=== PATIENT | male | born 1970 | race Two or more races ===

== ENCOUNTER 2018-02-07 16:08 | Inpatient (IN) | payer OTHER ==
[2018-02-07 16:54] VITALS: BMI 24.3
--- NOTE | 2018-02-07 20:14 | HP ---
CIWA Score - CIWA Score Nausea/Vomitin Muscle Tremors: 2 Anxiety: 3 Agitation: 1-Slight > Activity Paroxysmal Sweats: 2 Orientation: 1-Uncertain about Date Tacttile Disturbances: 0-None Auditory Disturbances: 0-None Visual Disturbances: 0-None Headache: 2-Mild CIWA-Ar Total Score: 13 Admission ROS S - HPI Chief Complaint: WITHDRAWAL SYMPTOMS Allergies/Adverse Reactions: Allergies Allergy/AdvReac Type Severity Reaction Status Date / Time No Known Allergies Allergy Verified 02/07/18 17:47 History of Present Illness: 47 Y.O. MAN WITH A HISTORY ALCOHOL DEPENDENCE IS HERE SEEKING DETOX. HE REPORTS HE LAST COMPLETED DETOX 1 YEAR AGO AT [facility]. HE IS HAS A HISTORY OF OPIOID DEPENDENCE IS CURRENTLY PRESCRIBED SUBOXONE (VERIFIED BY FACE BURLER AND 42 STRIPS OF 4/1MG WAS DISPENSED ON 01/29/18). LONGEST PERIOD SOBER HAS BEEN 8 MONTHS. Exam Limitations: No Limitations - Ebola screening Have you traveled outside of the country in the last 21 days: No (N) Have you had contact with anyone from an Ebola affected area: No Have you been sick,other than usual withdrawal symptoms: No Do you have a fever: No - Review of Systems Constitutional: Chills, Diaphoresis EENT: reports: Blurred Vision, Double Vision, Tearing Respiratory: reports: No Symptoms reported Cardiac: reports: No Symptoms Reported GI: reports: No Symptoms Reported : reports: No Symptoms Reported Musculoskeletal: reports: No Symptoms Reported Integumentary: reports: No Symptoms Reported Neuro: reports: Headache, Tremors Endocrine: reports: No Symptoms Reported Hematology: reports: No Symptoms Reported Psychiatric: reports: Anxious, other (BIPOLAR) Other Systems: Reviewed and Negative Patient History - Patient Medical History Hx Anemia: No Hx Asthma: No Hx Chronic Obstructive Pulmonary Disease (COPD): No Hx Cancer: No Hx Cardiac Disorders: No Hx Congestive Heart Failure: No Hx Hypertension: Yes (TAKES AMLODIPINE ) Hx Hypercholesterolemia: No Hx Pacemaker: No HX Cerebrovascular Accident: No Hx Seizures: No Hx Dementia: No Hx Diabetes: No Hx Gastrointestinal Disorders: No Hx Liver Disease: No Hx Genitourinary Disorders: No Hx Sexually Transmitted Disorders: No Hx Renal Disease (ESRD): No Hx Thyroid Disease: No Hx Human Immunodeficiency Virus (HIV): No Hx Hepatitis C: No Hx Depression: No Hx Suicide Attempt: No Hx Bipolar Disorder: Yes (ON SEROQUEL ) Hx Schizophrenia: No - Patient Surgical History Past Surgical History: Yes Hx Neurologic Surgery: No Hx Cataract Extraction: No Hx Cardiac Surgery: No Hx Lung Surgery: No Hx Breast Surgery: No Hx Breast Biopsy: No Hx Abdominal Surgery: No Hx Appendectomy: No Hx Cholecystectomy: No Hx Genitourinary Surgery: No Hx Orthopedic Surgery: Yes (rt. shoulder arthroscopy) Anesthesia Reaction: No - PPD History Previous Implant?: Yes Documented Results: Negative w/proof Date: 03/21/13 PPD to be Administered?: Yes - Reproductive History Patient is a Female of Child Bearing Age (11 -55 yrs old): No - Smoking Cessation Smoking history: Current every day smoker Have you smoked in the past 12 months: Yes Aproximately how many cigarettes per day: 20 Hx Chewing Tobacco Use: No Initiated information on smoking cessation: Yes 'Breaking Loose' booklet given: 02/07/18 - Substance & Tx. History Hx Alcohol Use: Yes Hx Substance Use: Yes Substance Use Type: Alcohol Hx Substance Use Treatment: Yes (DETOX: 1 YEAR AGO AT [facility] ) - Substances Abused Alcohol Route: Oral Frequency: Daily Amount used: LIQUOR- 2 PINTS Age of first use: 16 Date of Last Use: 02/07/18 Cocaine Route: Smoking Frequency: 1-2 times per week Amount used: 1 BAG Age of first use: 19 Date of Last Use: 02/05/18 Family Disease History - Family Disease History Family Disease History: Diabetes: Mother, Heart Disease: Mother, CA: Sister Admission Physical Exam [facility] - Vital Signs Vital Signs: Vital Signs - 24 hr 02/07/18 16:48 Temperature 98.8 F Pulse Rate 79 Respiratory 18 Rate Blood Pressure 133/90 - Physical General Appearance: Yes: Irritable, Anxious HEENTM: Yes: Hearing grossly Normal, Normal ENT Inspection, Normocephalic Respiratory: Yes: Chest Non-Tender, Lungs Clear, Normal Breath Sounds, No Respiratory Distress, No Accessory Muscle Use Neck: Yes: Within Normal Limits, No masses,lesions,Nodules Breast: Yes: Breast Exam Deferred Cardiology: Yes: Regular Rhythm Abdominal: Yes: Normal Bowel Sounds, Non Tender Genitourinary: Yes: Other (NO COMPLAINTS REPORTED) Back: Yes: Normal Inspection Musculoskeletal: Yes: full range of Motion, Gait Steady Extremities: Yes: Normal Capillary Refill, Normal Inspection, Normal Range of Motion, Non-Tender, Tremors Neurological: Yes: Alert, Normal Mood/Affect, Normal Response Integumentary: Yes: Normal Color, Dry, Warm Lymphatic: Yes: Within Normal Limits - Diagnostic (1) Uncomplicated alcohol dependence Current Visit: Yes Status: Chronic (2) Opioid dependence on agonist therapy Current Visit: Yes Status: Chronic Comment: PRESCRIBED SUBOXONE 4/1MG TID BUT REPORTS HE HAS BEEN TAKING IT BID WITH WITH WITHDRAWAL SYMPTOMS; WILL CONTINUE WITH BID (3) Nicotine dependence Current Visit: Yes Status: Chronic (4) Hypertension Current Visit: Yes Status: Chronic Cleared for Admission [facility] - Detox or Rehab [facility] Level of Care: Medically Managed Detox Regimen/Protocol: Librium [facility] Breath Alcohol Content Breath Alcohol Content: 0.195 Urine Drug Screen - Results Drug Screen Negative: No Urine Drug Screen Results: DESTINI-Cocaine
[2018-02-07] MEDS ORDERED: MENTHOL/PHENOL 1 EACH UD MM PRN (20:38)
[2018-02-07] MEDS ORDERED: chlordiazePOXIDE HCL 25 MG CAPSULE PO PRN (20:38)
[2018-02-07] MEDS ORDERED: MAGNESIUM CITRATE 300 ML BOTTLE PO PRN (20:38)
[2018-02-07] MEDS ORDERED: P-EPHED 60MG/TRIPROLIDI 2.5MG TABLET PO PRN (20:38)
[2018-02-07] MEDS ORDERED: IBUPROFEN 400 MG TABLET (FP) PO PRN (20:38)
[2018-02-07] MEDS ORDERED: LOPERAMIDE HCL 2 MG CAPSULE PO PRN (20:38)
[2018-02-07] MEDS ORDERED: chlordiazePOXIDE HCL 25 MG CAPSULE PO ONE (20:38)
[2018-02-07] MEDS ORDERED: MAG HYDROX/AL HYDROX/SIMETH 30 ML UNIT-DOSE CUP PO PRN (20:38)
[2018-02-07] MEDS ORDERED: hydrOXYzine PAMOATE 50 MG CAPSULE (FP) PO PRN (20:38)
[2018-02-07] MEDS ORDERED: ACETAMINOPHEN 325 MG TABLET (FP) PO PRN (20:38)
[2018-02-07] MEDS ORDERED: MAGNESIUM HYDROX 2400MG/30ML ORAL SUSPENSION 30 ML CUP PO PRN (20:38)
[2018-02-07] MEDS ORDERED: guaiFENesin/D-METHORPHAN HB 10 ML UNIT-DOSE CUPS PO PRN (20:38)
[2018-02-07] MEDS ORDERED: NICOTINE POLACRILEX 2 MG GUM BC PRN (20:38)
[2018-02-07] MEDS: THIAMINE HCL 100 MG TABLET (FP) PO SCH (21:53)
[2018-02-07] MEDS ORDERED: MELATONIN 5 MG TABLETS PO PRN (22:00)
[2018-02-07 23:20] LABS: URINE APPEARANCE CLEAR; URINE BILIRUBIN NEGATIVE (<2.0 mg/dL); URINE COLOR LTYELLOW; URINE GLUCOSE (UA) NEGATIVE (NEGATIVE); URINE KETONE TRACE (NEGATIVE); URINE LEUK ESTERASE NEGATIVE (NEGATIVE); URINE NITRITE NEGATIVE (NEGATIVE); URINE PROTEIN NEGATIVE (NEGATIVE); URINE UROBILINOGEN NEGATIVE mg/dL (0.2-1.0)
[2018-02-07] MEDS: chlordiazePOXIDE HCL 25 MG CAPSULE PO SCH (23:26)
[2018-02-08] MEDS: chlordiazePOXIDE HCL 25 MG CAPSULE PO SCH ×4 (05:17→22:26)
[2018-02-08 10:09] LABS: HEMATOCRIT 38.9 % (35.4-49); MEAN PLT VOLUME 8.4 fl (7.5-11.1); RBC 4.29 M/mm3 (4.00-5.60); RDW 13.4 % (11.9-15.9); WHITE BLOOD COUNT 5.1 K/mm3 (4.0-10.0)
[2018-02-08 10:12] LABS: HEMOGLOBIN 13.5 GM/dL (11.7-16.9); MCH 31.5 pg (25.7-33.7); MCHC 34.7 g/dl (32.0-35.9); MEAN CELL VOLUME 90.8 fl (80-96); PLATELET COUNT 217 K/MM3 (134-434)
[2018-02-08 10:24] LABS: ALBUMIN 3.8 g/dl (3.4-5.0); ANION GAP 11 (8-16); BLOOD UREA NITROGEN 7 mg/dL (7-18); CALCIUM 9.1 mg/dL (8.5-10.1); CHLORIDE 104 mmol/L (98-107); CO2 28 mmol/L (21-32); GLUCOSE,RANDOM 91 mg/dL (74-106); POTASSIUM 3.6 mmol/L (3.5-5.1); SODIUM 143 mmol/L (136-145)
[2018-02-08 10:28] LABS: ALK PHOS 90 U/L (45-117); BILIRUBIN,TOTAL 0.3 mg/dL (0.2-1.0); CREATININE 0.7 mg/dL (0.7-1.3); SGOT/AST 25 U/L (15-37); SGPT/ALT 41 U/L (12-78); TOT PROT 6.6 g/dl (6.4-8.2)
[2018-02-08] MEDS: amLODIPine BESYLATE 10 MG TABLET (FP) PO SCH (10:40)
[2018-02-08] MEDS: BUPRENORPHINE/NALOXONE 2 MG/0.5 MG FILM PACKET SL SCH ×2 (10:40→22:26)
[2018-02-08] MEDS: PRENATAL VITAMINS W/ FOLIC ACID TABLET (FP) PO SCH (10:40)
[2018-02-08] MEDS: NICOTINE 21 MG/24 HOURS TOPICAL PATCH TD SCH (10:41)
--- NOTE | 2018-02-08 12:32 | PN ---
S CIWA - CIWA Score Nausea/Vomitin Muscle Tremors: 3 Anxiety: 3 Agitation: 3 Paroxysmal Sweats: 1-Minimal Palms Moist Orientation: 0-Oriented Tacttile Disturbances: 1-Very Mild Itch/Numbness Auditory Disturbances: 1-Very Mild Visual Disturbances: 0-None Headache: 2-Mild CIWA-Ar Total Score: 17 [facility] Progress Note (SOAP) Subjective: ALERT,IRRITABLE,ANXIOUS,INTERRUPTED SLEEP,TREMOR Objective: 02/08/18 12:29 Vital Signs Temperature 98.1 F 02/08/18 09:38 Pulse Rate 82 02/08/18 12:00 Respiratory Rate 18 02/08/18 10:30 Blood Pressure 118/69 02/08/18 09:38 O2 Sat by Pulse Oximetry (%) EKG NSR QT 346/423 02/08/18 12:31 Laboratory Last Values WBC 5.1 K/mm3 (4.0-10.0) 02/08/18 07:00 RBC 4.29 M/mm3 (4.00-5.60) 02/08/18 07:00 Hgb 13.5 GM/dL (11.7-16.9) 02/08/18 07:00 Hct 38.9 % (35.4-49) 02/08/18 07:00 MCV 90.8 fl (80-96) 02/08/18 07:00 MCH 31.5 pg (25.7-33.7) 02/08/18 07:00 MCHC 34.7 g/dl (32.0-35.9) 02/08/18 07:00 RDW 13.4 % (11.9-15.9) 02/08/18 07:00 Plt Count 217 K/MM3 (134-434) 02/08/18 07:00 MPV 8.4 fl (7.5-11.1) 02/08/18 07:00 Sodium 143 mmol/L (136-145) 02/08/18 07:00 Potassium 3.6 mmol/L (3.5-5.1) D 02/08/18 07:00 Chloride 104 mmol/L (98-107) 02/08/18 07:00 Carbon Dioxide 28 mmol/L (21-32) 02/08/18 07:00 Anion Gap 11 (8-16) 02/08/18 07:00 BUN 7 mg/dL (7-18) D 02/08/18 07:00 Creatinine 0.7 mg/dL (0.7-1.3) 02/08/18 07:00 Creat Clearance w eGFR > 60 (>60) 02/08/18 07:00 Random Glucose 91 mg/dL (74-106) D 02/08/18 07:00 Calcium 9.1 mg/dL (8.5-10.1) 02/08/18 07:00 Total Bilirubin 0.3 mg/dL (0.2-1.0) D 02/08/18 07:00 AST 25 U/L (15-37) D 02/08/18 07:00 ALT 41 U/L (12-78) D 02/08/18 07:00 Alkaline Phosphatase 90 U/L (45-117) 02/08/18 07:00 Total Protein 6.6 g/dl (6.4-8.2) 02/08/18 07:00 Albumin 3.8 g/dl (3.4-5.0) 02/08/18 07:00 Urine Color Ltyellow 02/07/18 23:00 Urine Appearance Clear 02/07/18 23:00 Urine pH 6.0 (5.0-8.0) 02/07/18 23:00 Ur Specific [place] 1.015 (1.001-1.035) 02/07/18 23:00 Urine Protein Negative (NEGATIVE) 02/07/18 23:00 Urine Glucose (UA) Negative (NEGATIVE) 02/07/18 23:00 Urine Ketones Trace (NEGATIVE) H 02/07/18 23:00 Urine Blood Negative (NEGATIVE) 02/07/18 23:00 Urine Nitrite Negative (NEGATIVE) 02/07/18 23:00 Urine Bilirubin Negative (<2.0 mg/dL) 02/07/18 23:00 Urine Urobilinogen Negative mg/dL (0.2-1.0) 02/07/18 23:00 Ur Leukocyte Esterase Negative (NEGATIVE) 02/07/18 23:00 RPR Titer Nonreactive (NONREACTIVE) 02/08/18 07:00 HIV 1&2 Antibody Screen Negative 02/08/18 07:00 HIV P24 Antigen Negative 02/08/18 07:00 Assessment: 02/08/18 12:32 WITHDRAWAL SYMPTOM Plan: CONTINUE DETOX
--- NOTE | 2018-02-08 12:46 | CONSULT ---
[facility] Psychiatric Consult - Data Date of interview: 02/08/18 Admission source: [facility] Identifying data: Patient is a 47 year old single male, domiciled, father of one , unemployed, and receiving financial benefits. This is one of multiple admissions for patient. Pt. admitted to for alcohol and cocaine dependence. Substance Abuse History: Following information confirmed with Mr. Valencia: Smoking Cessation. Smoking history: Current every day smoker. Have you smoked in the past 12 months: Yes. Aproximately how many cigarettes per day: 20. Hx Chewing Tobacco Use: No. Initiated information on smoking cessation: Yes. ' Breaking Loose' booklet given: 02/07/18. - Substance & Tx. History. Hx Alcohol Use: Yes. Hx Substance Use: Yes. Substance Use Type: Alcohol. Hx Substance Use Treatment: Yes (DETOX: 1 YEAR AGO AT [facility] ). - Substances Abused. Alcohol. Route: Oral. Frequency: Daily. Amount used: LIQUOR- 2 PINTS. Age of first use: 16. Date of Last Use: 02/07/18. Cocaine. Route: Smoking. Frequency: 1-2 times per week. Amount used: 1 BAG. Age of first use : 19. Date of Last Use: 02/05/18 Medical History: rt. shoulder arthroscopy, hypertension Psychiatric History: Patient reports multiple psychiatric hospitalizations, most recently in October of 2017 at a "[facility]." Currently does not have an outpatient provider but was seeing a psychiatrist at the [facility] clinic (3 weeks ago). Pt. was prescribed latuda but d/c medication after becoming manic. Pt. states he is currently taking seroquel 50mg qhs. Patient denies h/o suicide attempt. Physical/Sexual Abuse/Trauma History: Denies. Mental Status Exam - Mental Status Exam Alert and Oriented to: Time, Place, Person Cognitive Function: Good Patient Appearance: Well Groomed Mood: Euthymic Affect: Mood Congruent Patient Behavior: Appropriate, Cooperative Speech Pattern: Appropriate Voice Loudness: Normal Thought Process: Intact, Goal Oriented Thought Disorder: Not Present Hallucinations: Denies Suicidal Ideation: Denies Homicidal Ideation: Denies Insight/Judgement: Poor Sleep: Poorly Appetite: Fair Muscle strength/Tone: Normal Gait/Station: Normal Psychiatric Findings - Problem List ([place] 1, 2,3) (1) Cocaine dependence Current Visit: Yes Status: Acute (2) Nicotine dependence Current Visit: Yes Status: Chronic (3) Uncomplicated alcohol dependence Current Visit: Yes Status: Acute (4) Substance induced mood disorder Current Visit: Yes Status: Acute (5) Opioid dependence on agonist therapy Current Visit: Yes Status: Chronic Comment: PRESCRIBED SUBOXONE 4/1MG TID BUT REPORTS HE HAS BEEN TAKING IT BID WITH WITH WITHDRAWAL SYMPTOMS; WILL CONTINUE WITH BID - Initial Treatment Plan Initial Treatment Plan: Psychoeducation provided. Detoxification in progress. Seroquel 50mg qhs ordered. Benefits and side effects discussed. Verbal consent given. Will continue to monitor.
[2018-02-08] MEDS ORDERED: QUEtiapine FUMARATE 50 MG TABLET PO SCH (22:00)
[2018-02-08] MEDS: THIAMINE HCL 100 MG TABLET (FP) PO SCH (22:26)
[2018-02-09] MEDS: chlordiazePOXIDE HCL 25 MG CAPSULE PO SCH ×2 (05:34→10:30)
--- NOTE | 2018-02-09 08:24 | EKG ---
Test Reason : Blood Pressure : / mmHG Vent. Rate : 090 BPM Atrial Rate : 090 BPM P-R Int : 156 ms QRS Dur : 082 ms QT Int : 346 ms P-R-T Axes : 071 086 057 degrees QTc Int : 423 ms NORMAL SINUS RHYTHM NORMAL ECG NO PREVIOUS ECGS AVAILABLE Confirmed by RICKY GREY, PARUL ([id number]) on 02/09/2018 8:23:18 AM Referred By: Confirmed By:PARUL GARCÍA MD
[2018-02-09 09:27] VITALS: BP 110/63; PULSE 64; TEMP 98.1
[2018-02-09] MEDS: PRENATAL VITAMINS W/ FOLIC ACID TABLET (FP) PO SCH (10:30)
[2018-02-09] MEDS: NICOTINE 21 MG/24 HOURS TOPICAL PATCH TD SCH (10:30)
[2018-02-09] MEDS: amLODIPine BESYLATE 10 MG TABLET (FP) PO SCH (10:30)
[2018-02-09] MEDS: BUPRENORPHINE/NALOXONE 2 MG/0.5 MG FILM PACKET SL SCH (10:30)
--- NOTE | 2018-02-09 12:28 | PN ---
S CIWA - CIWA Score Nausea/Vomitin Muscle Tremors: 3 Anxiety: 2 Agitation: 2 Paroxysmal Sweats: 1-Minimal Palms Moist Orientation: 0-Oriented Tacttile Disturbances: 1-Very Mild Itch/Numbness Auditory Disturbances: 1-Very Mild Visual Disturbances: 1-Very Mild Sensitivity Headache: 2-Mild CIWA-Ar Total Score: 16 S Progress Note (SOAP) Subjective: ALERT,IRRITABLE,ANXIOUS,INTERRUPTED SLEEP,TREMOR Objective: 02/09/18 12:26 Vital Signs Temperature 98.1 F 02/09/18 09:26 Pulse Rate 64 02/09/18 09:26 Respiratory Rate 16 02/09/18 09:26 Blood Pressure 110/63 02/09/18 09:26 O2 Sat by Pulse Oximetry (%) 02/09/18 12:27 Laboratory Last Values WBC 5.1 K/mm3 (4.0-10.0) 02/08/18 07:00 RBC 4.29 M/mm3 (4.00-5.60) 02/08/18 07:00 Hgb 13.5 GM/dL (11.7-16.9) 02/08/18 07:00 Hct 38.9 % (35.4-49) 02/08/18 07:00 MCV 90.8 fl (80-96) 02/08/18 07:00 MCH 31.5 pg (25.7-33.7) 02/08/18 07:00 MCHC 34.7 g/dl (32.0-35.9) 02/08/18 07:00 RDW 13.4 % (11.9-15.9) 02/08/18 07:00 Plt Count 217 K/MM3 (134-434) 02/08/18 07:00 MPV 8.4 fl (7.5-11.1) 02/08/18 07:00 Sodium 143 mmol/L (136-145) 02/08/18 07:00 Potassium 3.6 mmol/L (3.5-5.1) D 02/08/18 07:00 Chloride 104 mmol/L (98-107) 02/08/18 07:00 Carbon Dioxide 28 mmol/L (21-32) 02/08/18 07:00 Anion Gap 11 (8-16) 02/08/18 07:00 BUN 7 mg/dL (7-18) D 02/08/18 07:00 Creatinine 0.7 mg/dL (0.7-1.3) 02/08/18 07:00 Creat Clearance w eGFR > 60 (>60) 02/08/18 07:00 Random Glucose 91 mg/dL (74-106) D 02/08/18 07:00 Calcium 9.1 mg/dL (8.5-10.1) 02/08/18 07:00 Total Bilirubin 0.3 mg/dL (0.2-1.0) D 02/08/18 07:00 AST 25 U/L (15-37) D 02/08/18 07:00 ALT 41 U/L (12-78) D 02/08/18 07:00 Alkaline Phosphatase 90 U/L (45-117) 02/08/18 07:00 Total Protein 6.6 g/dl (6.4-8.2) 02/08/18 07:00 Albumin 3.8 g/dl (3.4-5.0) 02/08/18 07:00 Urine Color Ltyellow 02/07/18 23:00 Urine Appearance Clear 02/07/18 23:00 Urine pH 6.0 (5.0-8.0) 02/07/18 23:00 Ur Specific [place] 1.015 (1.001-1.035) 02/07/18 23:00 Urine Protein Negative (NEGATIVE) 02/07/18 23:00 Urine Glucose (UA) Negative (NEGATIVE) 02/07/18 23:00 Urine Ketones Trace (NEGATIVE) H 02/07/18 23:00 Urine Blood Negative (NEGATIVE) 02/07/18 23:00 Urine Nitrite Negative (NEGATIVE) 02/07/18 23:00 Urine Bilirubin Negative (<2.0 mg/dL) 02/07/18 23:00 Urine Urobilinogen Negative mg/dL (0.2-1.0) 02/07/18 23:00 Ur Leukocyte Esterase Negative (NEGATIVE) 02/07/18 23:00 RPR Titer Nonreactive (NONREACTIVE) 02/08/18 07:00 HIV 1&2 Antibody Screen Negative 02/08/18 07:00 HIV P24 Antigen Negative 02/08/18 07:00 Assessment: 02/09/18 12:27 WITHDRAWAL SYMPTOM Plan: CONTINUE DETOX
--- NOTE | 2018-02-09 12:31 | PN ---
[facility] Progress Note Note: PATIENT DID NOT WANT TO COMPLETE TREATMENT,SEEN BY COUNSELOR,SIGNED RELEASE AMA, ALL ATTEMPTS TO CONVINCE PATIENT TO STAY WITH NO AVAIL
--- NOTE | 2018-02-09 12:36 | DS ---
[facility] Detox Discharge Summary Admission Date: 02/07/18 Discharge Date: 02/09/18 - History Present History: Alcohol Dependence Additional Comments: PATIENT DID NOT WANT TO COMPLETE TREATMENT,ALL ATTEMPTS TO CONVINCE PATIENT TO STAY WITH NO AVAIL, SIGNED RELEASE AMA Pertinent Past History: NICOTINE DEPENDENCE SUBOXONE MAINTENANCE HYPERTENSION - Physical Exam Results Vital Signs: Vital Signs Temperature 98.1 F 02/09/18 09:26 Pulse Rate 64 02/09/18 09:26 Respiratory Rate 16 02/09/18 09:26 Blood Pressure 110/63 02/09/18 09:26 O2 Sat by Pulse Oximetry (%) Pertinent Admission Physical Exam Findings: WITHDRAWAL SIGNS AND SYMPTOM Vital Signs Temperature 98.1 F 02/09/18 09:26 Pulse Rate 64 02/09/18 09:26 Respiratory Rate 16 02/09/18 09:26 Blood Pressure 110/63 02/09/18 09:26 O2 Sat by Pulse Oximetry (%) Laboratory Last Values WBC 5.1 K/mm3 (4.0-10.0) 02/08/18 07:00 RBC 4.29 M/mm3 (4.00-5.60) 02/08/18 07:00 Hgb 13.5 GM/dL (11.7-16.9) 02/08/18 07:00 Hct 38.9 % (35.4-49) 02/08/18 07:00 MCV 90.8 fl (80-96) 02/08/18 07:00 MCH 31.5 pg (25.7-33.7) 02/08/18 07:00 MCHC 34.7 g/dl (32.0-35.9) 02/08/18 07:00 RDW 13.4 % (11.9-15.9) 02/08/18 07:00 Plt Count 217 K/MM3 (134-434) 02/08/18 07:00 MPV 8.4 fl (7.5-11.1) 02/08/18 07:00 Sodium 143 mmol/L (136-145) 02/08/18 07:00 Potassium 3.6 mmol/L (3.5-5.1) D 02/08/18 07:00 Chloride 104 mmol/L (98-107) 02/08/18 07:00 Carbon Dioxide 28 mmol/L (21-32) 02/08/18 07:00 Anion Gap 11 (8-16) 02/08/18 07:00 BUN 7 mg/dL (7-18) D 02/08/18 07:00 Creatinine 0.7 mg/dL (0.7-1.3) 02/08/18 07:00 Creat Clearance w eGFR > 60 (>60) 02/08/18 07:00 Random Glucose 91 mg/dL (74-106) D 02/08/18 07:00 Calcium 9.1 mg/dL (8.5-10.1) 02/08/18 07:00 Total Bilirubin 0.3 mg/dL (0.2-1.0) D 02/08/18 07:00 AST 25 U/L (15-37) D 02/08/18 07:00 ALT 41 U/L (12-78) D 02/08/18 07:00 Alkaline Phosphatase 90 U/L (45-117) 02/08/18 07:00 Total Protein 6.6 g/dl (6.4-8.2) 02/08/18 07:00 Albumin 3.8 g/dl (3.4-5.0) 02/08/18 07:00 Urine Color Ltyellow 02/07/18 23:00 Urine Appearance Clear 02/07/18 23:00 Urine pH 6.0 (5.0-8.0) 02/07/18 23:00 Ur Specific [place] 1.015 (1.001-1.035) 02/07/18 23:00 Urine Protein Negative (NEGATIVE) 02/07/18 23:00 Urine Glucose (UA) Negative (NEGATIVE) 02/07/18 23:00 Urine Ketones Trace (NEGATIVE) H 02/07/18 23:00 Urine Blood Negative (NEGATIVE) 02/07/18 23:00 Urine Nitrite Negative (NEGATIVE) 02/07/18 23:00 Urine Bilirubin Negative (<2.0 mg/dL) 02/07/18 23:00 Urine Urobilinogen Negative mg/dL (0.2-1.0) 02/07/18 23:00 Ur Leukocyte Esterase Negative (NEGATIVE) 02/07/18 23:00 RPR Titer Nonreactive (NONREACTIVE) 02/08/18 07:00 HIV 1&2 Antibody Screen Negative 02/08/18 07:00 HIV P24 Antigen Negative 02/08/18 07:00 - Medication Discharge Medications: Ambulatory Orders Quetiapine Fumarate [Seroquel -] 200 mg PO HS 03/19/13 Amlodipine Besylate [Norvasc -] 10 mg PO DAILY 02/07/18 Buprenorphine HCl/Naloxone HCl [Suboxone 4 mg-1 mg Sl Film] 1 each SL TID - Diagnosis (1) Alcohol dependence with uncomplicated withdrawal Current Visit: Yes Status: Acute (2) Uncomplicated alcohol dependence Current Visit: Yes Status: Acute (3) Hypertension Current Visit: Yes Status: Chronic (4) Nicotine dependence Current Visit: Yes Status: Chronic (5) Encounter for monitoring Suboxone maintenance therapy Current Visit: Yes Status: Acute - AMA Did Patient Leave Against Medical Advice: Yes
--- NOTE | 2018-02-09 12:42 | PN ---
[facility] Progress Note Note: PATIENT HAS MEDICATIONS AT HOME
[2018-02-09] MEDS ORDERED: chlordiazePOXIDE 5 MG CAPSULE PO SCH (23:00)
[2018-02-10] MEDS ORDERED: chlordiazePOXIDE HCL 10 MG CAPSULE PO SCH (23:00)
== END 2018-02-09 13:23 | disposition left against medical advice (07) | DRG 894 ==
LOC: YASAS 16:08 → Y6N 18:04
PROVIDERS: ADMIT Surgery; ATTEND Surgery
PROC: HZ2ZZZZ Detoxification Services for Substance Abuse Treatment (ICD-10-PCS; principal; 2018-02-07)
DX: F10.230 Alcohol dependence with withdrawal, uncomplicated (principal); F14.20 Cocaine dependence, uncomplicated; F17.210 Nicotine dependence, cigarettes, uncomplicated; F19.24 Other psychoactive substance dependence with psychoactive substance-induced mood disorder; F31.9 Bipolar disorder, unspecified; Z51.81 Encounter for therapeutic drug level monitoring; I10 Essential (primary) hypertension
CPT/HCPCS: 36415; 80053; 81003; 85027; 86593; 87389; 93005; 93010

== ENCOUNTER 2018-09-14 09:21 | Inpatient (IN) | payer OTHER ==
[2018-09-14 09:39] VITALS: BMI 24.3
--- NOTE | 2018-09-14 10:07 | HP ---
COWS - Scale Resting Pulse: 0= [place] 80 or Below Sweatin= Chills/Flushing Restless Observation: 0= Sits Still Pupil Size: 0= Normal to Room Light Bone or Joint Aches: 1= Mild Discomfort Runny Nose/ Eye Tearin= Nasal Congestion GI Upset > 30mins: 1= Stomach Cramp Tremor Observation: 2= Slight Tremor Visible Yawning Observation: 1= 1-2x During Session Anxiety or Irritability: 1=Feels Anxious/Irritable Goose Flesh Skin: 0=Smooth Skin COWS Score: 8 Admission ROS S - HPI Chief Complaint: I overdosed yesterday, I've overdosed before but this one - I got real sick, then a few hours later I was going to use again,I thought, what am I doing- then someone came and asked if I wanted to get help and I said yeah. Allergies/Adverse Reactions: Allergies Allergy/AdvReac Type Severity Reaction Status Date / Time No Known Allergies Allergy Verified 09/14/18 10:46 History of Present Illness: 47 yo gentleman here for detox from opiates - lengthy history of multiple attempts at treatment including suboxone, vivitrol and methadone program. Was in [facility] until about a month ago - he was on suboxone but stopped it several months ago as 'didn't want to be hooked' and relapsed. Has had several overdoses, most recently yesterday when he was revived with narcan at the custodial and taken to emergency room. I am unable to check [place] as the site is down for maintenance until 10pm. Exam Limitations: Clinical Condition - Ebola screening Have you traveled outside of the country in the last 21 days: No (N) Have you had contact with anyone from an Ebola affected area: No Have you been sick,other than usual withdrawal symptoms: No Do you have a fever: No - Review of Systems Constitutional: Loss of Appetite, Malaise, Changes in sleep EENT: reports: Tearing, Nose Congestion Respiratory: reports: No Symptoms reported Cardiac: reports: No Symptoms Reported GI: reports: Abdominal cramping : reports: Dysuria Musculoskeletal: reports: Back Pain, Muscle Pain Integumentary: reports: Flushing Neuro: reports: No Symptoms reported Endocrine: reports: No Symptoms Reported Hematology: reports: No Symptoms Reported Psychiatric: reports: Judgement Intact, Mood/Affect Appropiate, Anxious Other Systems: Reviewed and Negative Patient History - Patient Medical History Hx Anemia: No Hx Asthma: No Hx Chronic Obstructive Pulmonary Disease (COPD): No Hx Cancer: No Hx Cardiac Disorders: No Hx Congestive Heart Failure: No Hx Hypertension: No Hx Hypercholesterolemia: No Hx Pacemaker: No HX Cerebrovascular Accident: No Hx Seizures: No Hx Dementia: No Hx Diabetes: No Hx Gastrointestinal Disorders: No Hx Liver Disease: No Hx Genitourinary Disorders: No Hx Sexually Transmitted Disorders: No Hx Renal Disease (ESRD): No Hx Thyroid Disease: No Hx Human Immunodeficiency Virus (HIV): No Hx Hepatitis C: No Hx Depression: No Hx Suicide Attempt: No Hx Bipolar Disorder: Yes (ON SEROQUEL but none x 6months; hospitalized 2015) Hx Schizophrenia: No - Patient Surgical History Past Surgical History: Yes Hx Neurologic Surgery: No Hx Cataract Extraction: No Hx Cardiac Surgery: No Hx Lung Surgery: No Hx Breast Surgery: No Hx Breast Biopsy: No Hx Abdominal Surgery: No Hx Appendectomy: No Hx Cholecystectomy: No Hx Genitourinary Surgery: No Hx Orthopedic Surgery: Yes (rt. shoulder arthroscopy; left hip replacement 2012) Anesthesia Reaction: No - PPD History Previous Implant?: Yes Documented Results: Negative w/proof Implanted On Prior R Admission?: Yes Date: 02/09/18 PPD to be Administered?: No - Reproductive History Patient is a Female of Child Bearing Age (11 -55 yrs old): No (male) - Smoking Cessation Smoking history: Current every day smoker Have you smoked in the past 12 months: Yes Aproximately how many cigarettes per day: 10 Hx Chewing Tobacco Use: No Initiated information on smoking cessation: Yes 'Breaking Loose' booklet given: 09/14/18 (give on floor) - Substance & Tx. History Hx Alcohol Use: No Hx Substance Use: Yes Substance Use Type: Cocaine, Heroin Hx Substance Use Treatment: Yes (detox, rehab, suboxone, [facility],vivitrol , methadone program) - Substances Abused heroin Route: Inhalation Frequency: Daily Amount used: 4 bags Age of first use: 27 Date of Last Use: 09/13/18 cocaine Route: Smoking Frequency: 1-2 times per week Amount used: $30 Age of first use: 19 Date of Last Use: 09/13/18 (1am) Family Disease History - Family Disease History Family Disease History: Diabetes: Mother (living - ), Heart Disease: Mother, CA : Sister (one - living), Other: Father (, liver disease ? etoh), Mother , Brother (one - living ), Sister, Daughter (age 14 - healthy) Admission Physical Exam [facility] - Vital Signs Vital Signs: Vital Signs - 24 hr 09/14/18 09:30 Temperature 98.9 F Pulse Rate 75 Respiratory 20 Rate Blood Pressure 126/69 - Physical General Appearance: Yes: Nourished, Appropriately Dressed, Moderate Distress, Anxious HEENTM: Yes: EOMI, Hearing grossly Normal, Normocephalic, Normal Voice, Pharynx Normal, Nasal Congestion, Rhinorrhea Respiratory: Yes: Normal Breath Sounds, No Respiratory Distress Neck: Yes: No masses,lesions,Nodules, Supple Breast: Yes: Breast Exam Deferred Cardiology: Yes: Regular Rhythm, Regular Rate Abdominal: Yes: Flat, Soft Genitourinary: Yes: Hesitency Back: Yes: Normal Inspection Musculoskeletal: Yes: full range of Motion, Gait Steady, Back pain, Muscle Pain Extremities: Yes: Normal Inspection, Normal Range of Motion, Non-Tender Neurological: Yes: Fully Oriented, Alert, Normal Mood/Affect, Normal Response Integumentary: Yes: Normal Color, Warm Lymphatic: Yes: Within Normal Limits - Diagnostic (1) Opioid dependence with withdrawal Current Visit: Yes Status: Chronic (2) Nicotine dependence Current Visit: Yes Status: Chronic Qualifiers: Nicotine product type: cigarettes Substance use status: uncomplicated Qualified Code(s): F17.210 - Nicotine dependence, cigarettes, uncomplicated (3) History of repeated overdose Current Visit: Yes Status: Chronic Cleared for Admission [facility] - Detox or Rehab [facility] Level of Care: Medically Managed Detox Regimen/Protocol: Methadone [facility] Breath Alcohol Content Breath Alcohol Content: 0 Urine Drug Screen - Results Drug Screen Negative: No Urine Drug Screen Results: DESTINI-Cocaine, OPI-Opiates, FEN-Fentanyl
[2018-09-14] MEDS ORDERED: MAGNESIUM CITRATE 300 ML BOTTLE PO PRN (10:37)
[2018-09-14] MEDS ORDERED: MAGNESIUM HYDROX 2400MG/30ML ORAL SUSPENSION 30 ML CUP PO PRN (10:37)
[2018-09-14] MEDS ORDERED: MAG HYDROX/AL HYDROX/SIMETH 30 ML UNIT-DOSE CUP PO PRN (10:37)
[2018-09-14] MEDS ORDERED: LOPERAMIDE HCL 2 MG CAPSULE PO PRN (10:37)
[2018-09-14] MEDS ORDERED: ACETAMINOPHEN 325 MG TABLET (FP) PO PRN (10:37)
[2018-09-14] MEDS ORDERED: P-EPHED 60MG/TRIPROLIDI 2.5MG TABLET PO PRN (10:37)
[2018-09-14] MEDS ORDERED: METHADONE HCL 10 MG TABLET (FOR DETOX USE ONLY) PO ONE ×2 (11:30→23:00)
[2018-09-14] MEDS: diazePAM 5 MG TABLET PO PRN ×2 (12:23→22:05)
[2018-09-14] MEDS: THIAMINE HCL 100 MG TABLET (FP) PO SCH (22:06)
[2018-09-15] MEDS: guaiFENesin/D-METHORPHAN HB 10 ML UNIT-DOSE CUPS PO PRN (05:25)
--- NOTE | 2018-09-15 07:52 | CONSULT ---
[facility] Psychiatric Consult - Data Date of interview: 09/15/18 Admission source: Self-referred Identifying data: Mr Valencia is a 47 years old single male, father of a 14 years daughter, unemployed on SSI, domiciled seeking detox treatment for opioid and cocaine Substance Abuse History: Reports history of heroin and cocaine use. Refer to addiction counselor's summary for further information Medical History: Significant for hypertension and history of orthosurgeries( arthroscopy right shoulder, left hip replacement in 2012). Smokes 10 cigarettes daily Psychiatric History: Patient reports that his first psychiatric contact was in 1999 when he was admitted to [facility] while under the influence of drug. Claims that he was diagnosed with Bipolar Disorder and started on psychotropic medications. Reports multiple subsequent psychiatric admissions including to [facility] many times, [facility] in [place] and most recently in October of 2017 at [facility] in the [place]. He currently does not have an outpatient provider but was seeing a psychiatrist at the [facility] clinic in the past. Pt. was prescribed latuda but d/c medication after becoming manic. He does not recall when he last took psychotropic medication. However according to facility EMR, he was admitted to inpatient detox in December 2017 and he was discharged on Seroquel 50 mg po HS. When confronted about this admission, he said he did not recall being admitted here last December. Patient denies h/o suicide attempt. At present, reports feeling depressed but sleeping too much Physical/Sexual Abuse/Trauma History: Denies history of emotional, physical or sexual abuse as well as DV relationship Additional Comment: Denies criminal history Mental Status Exam - Mental Status Exam Alert and Oriented to: Time, Place, Person Cognitive Function: Fair Patient Appearance: Well Groomed Mood: Depressed Affect: Appropriate Patient Behavior: Cooperative Speech Pattern: Clear Voice Loudness: Normal Thought Process: Intact, Goal Oriented Hallucinations: Denies Suicidal Ideation: Denies Homicidal Ideation: Denies Insight/Judgement: Fair Sleep: Well Appetite: Good Muscle strength/Tone: Normal Gait/Station: Normal Psychiatric Findings - Problem List ([place] 1, 2,3) (1) Bipolar disorder Current Visit: Yes Status: Chronic (2) Substance induced mood disorder Current Visit: Yes Status: Acute (3) Opioid dependence Current Visit: Yes Status: Acute (4) Cocaine dependence Current Visit: No Status: Acute Qualifiers: Substance use status: uncomplicated Qualified Code(s): F14.20 - Cocaine dependence, uncomplicated (5) Nicotine dependence Current Visit: Yes Status: Chronic Qualifiers: Nicotine product type: cigarettes Substance use status: uncomplicated Qualified Code(s): F17.210 - Nicotine dependence, cigarettes, uncomplicated (6) Hypertension Current Visit: No Status: Chronic - Initial Treatment Plan Initial Treatment Plan: 1) Start Seroquel 50 mg po HS. 2) Monitor progress
[2018-09-15] MEDS ORDERED: METHADONE HCL 10 MG TABLET (FOR DETOX USE ONLY) PO ONE (10:00)
[2018-09-15] MEDS: PRENATAL VITAMINS W/ FOLIC ACID TABLET (FP) PO SCH (10:14)
[2018-09-15] MEDS: NICOTINE POLACRILEX 4 MG GUM BUC PRN ×4 (10:26→22:55)
[2018-09-15 10:44] LABS: HEMATOCRIT 39.4 % (35.4-49); HEMOGLOBIN 12.9 GM/dL (11.7-16.9); MCH 30.3 pg (25.7-33.7); MCHC 32.7 g/dl (32.0-35.9); MEAN CELL VOLUME 92.7 fl (80-96); MEAN PLT VOLUME 9.2 fl (7.5-11.1); PLATELET COUNT 292 K/MM3 (134-434); RBC 4.25 M/mm3 (4.00-5.60); RDW 13.5 % (11.9-15.9); WHITE BLOOD COUNT 11.8 K/mm3 (4.0-10.0)
[2018-09-15 11:03] LABS: ALBUMIN 3.9 g/dl (3.4-5.0); ALK PHOS 93 U/L (45-117); ANION GAP 8 MMOL/L (8-16); BILIRUBIN,TOTAL 0.3 mg/dL (0.2-1); BLOOD UREA NITROGEN 14 mg/dL (7-18); CALCIUM 8.6 mg/dL (8.5-10.1); CHLORIDE 102 mmol/L (98-107); CO2 27 mmol/L (21-32); CREATININE 0.8 mg/dL (0.55-1.3); GLUCOSE,RANDOM 82 mg/dL (74-106); POTASSIUM 4.1 mmol/L (3.5-5.1); SGOT/AST 18 U/L (15-37); SGPT/ALT 28 U/L (13-61); SODIUM 136 mmol/L (136-145)
[2018-09-15] MEDS: diazePAM 5 MG TABLET PO PRN ×2 (13:38→22:19)
--- NOTE | 2018-09-15 17:10 | PN ---
[facility] COWS - Scale Resting Pulse: 0= [place] 80 or Below Sweatin= Chills/Flushing Restless Observation: 3= Extraneous Movement Pupil Size: 0= Normal to Room Light Bone or Joint Aches: 2= Severe Diffuse Aches Runny Nose/ Eye Tearin= Runny Nose/Eyes GI Upset > 30mins: 3= Vomiting/Diarrhea Tremor Observation of Outstretched Hands: 2= Slight Tremor Visible Yawning Observation: 1= 1-2x During Session Anxiety or Irritability: 2=Irritable/Anxious Goose Flesh Skin: 0=Smooth Skin COWS Score: 16 S Progress Note (SOAP) Subjective: Body aches, sweating, chills, tremor, runny nose, interrupted sleep Objective: 09/15/18 17:08 Last Vital Signs Temp Pulse Resp BP Pulse Ox 96.5 F L 68 18 124/87 09/15/18 13:33 09/15/18 13:33 09/15/18 13:33 09/15/18 13:33 Laboratory Tests 09/15/18 09/15/18 09/15/18 06:00 06:00 06:00 WBC 11.8 H RBC 4.25 Hgb 12.9 Hct 39.4 MCV 92.7 MCH 30.3 MCHC 32.7 RDW 13.5 Plt Count 292 D MPV 9.2 Sodium 136 Potassium 4.1 Chloride 102 Carbon Dioxide 27 Anion Gap 8 BUN 14 Creatinine 0.8 Creat Clearance w eGFR > 60 Random Glucose 82 Calcium 8.6 Total Bilirubin 0.3 AST 18 ALT 28 Alkaline Phosphatase 93 Total Protein 7.0 Albumin 3.9 RPR Titer Nonreactive Labs reviewed: wbc 11.8 Assessment: 09/15/18 17:08 Withdrawal symptoms Noted with leukocytosis Plan: Continue detox Encouraged PO water hydration Leukocytosis: asymptomatic, repeat CBC
[2018-09-15] MEDS: THIAMINE HCL 100 MG TABLET (FP) PO SCH (22:18)
[2018-09-15] MEDS: MELATONIN 5 MG TABLETS PO PRN (22:20)
[2018-09-16] MEDS: MENTHOL/PHENOL 1 EACH UD MM PRN (02:03)
[2018-09-16] MEDS: guaiFENesin/D-METHORPHAN HB 10 ML UNIT-DOSE CUPS PO PRN (02:03)
[2018-09-16] MEDS ORDERED: METHADONE HCL 5 MG TABLET (FOR DETOX USE ONLY) PO ONE (10:00)
[2018-09-16 10:07] LABS: BASO % 0.4 % (0-2.0); EOS % 5.8 % (0-4.5); HEMATOCRIT 38.4 % (35.4-49); HEMOGLOBIN 13.6 GM/dL (11.7-16.9); LYMPH % 23.3 % (8-40); MCH 32.3 pg (25.7-33.7); MCHC 35.5 g/dl (32.0-35.9); MEAN CELL VOLUME 91.1 fl (80-96); MONO % 9.6 % (3.8-10.2); NEUT % 60.9 % (42.8-82.8); PLATELET COUNT 259 K/MM3 (134-434); RBC 4.21 M/mm3 (4.00-5.60); WHITE BLOOD COUNT 6.4 K/mm3 (4.0-10.0)
[2018-09-16] MEDS: PRENATAL VITAMINS W/ FOLIC ACID TABLET (FP) PO SCH (10:26)
--- NOTE | 2018-09-16 11:57 | PN ---
[facility] COWS - Scale Resting Pulse: 0= [place] 80 or Below Sweatin= Chills/Flushing Restless Observation: 1= Difficult to Sit Still Pupil Size: 1= Pupils >than Normal Bone or Joint Aches: 2= Severe Diffuse Aches Runny Nose/ Eye Tearin= Nasal Congestion GI Upset > 30mins: 1= Stomach Cramp Tremor Observation of Outstretched Hands: 2= Slight Tremor Visible Yawning Observation: 2= >3x During Session Anxiety or Irritability: 1=Feels Anxious/Irritable Goose Flesh Skin: 0=Smooth Skin COWS Score: 12 S Progress Note (SOAP) Subjective: body aches joints pain tremor sweat Objective: 09/16/18 11:58 Vital Signs Temperature 96.5 F L 09/16/18 09:52 Pulse Rate 65 09/16/18 09:52 Respiratory Rate 17 09/16/18 09:52 Blood Pressure 119/80 09/16/18 09:52 O2 Sat by Pulse Oximetry (%) Laboratory Last Values WBC 6.4 K/mm3 (4.0-10.0) 09/16/18 07:00 RBC 4.21 M/mm3 (4.00-5.60) 09/16/18 07:00 Hgb 13.6 GM/dL (11.7-16.9) 09/16/18 07:00 Hct 38.4 % (35.4-49) 09/16/18 07:00 MCV 91.1 fl (80-96) 09/16/18 07:00 MCH 32.3 pg (25.7-33.7) 09/16/18 07:00 MCHC 35.5 g/dl (32.0-35.9) 09/16/18 07:00 RDW 13.0 % (11.9-15.9) 09/16/18 07:00 Plt Count 259 K/MM3 (134-434) 09/16/18 07:00 MPV 9.0 fl (7.5-11.1) 09/16/18 07:00 Absolute Neuts (auto) 3.9 K/mm3 (1.5-8.0) 09/16/18 07:00 Neutrophils % 60.9 % (42.8-82.8) 09/16/18 07:00 Lymphocytes % 23.3 % (8-40) 09/16/18 07:00 Monocytes % 9.6 % (3.8-10.2) 09/16/18 07:00 Eosinophils % 5.8 % (0-4.5) H 09/16/18 07:00 Basophils % 0.4 % (0-2.0) 09/16/18 07:00 Nucleated RBC % 0 % (0-0) 09/16/18 07:00 Sodium 136 mmol/L (136-145) 09/15/18 06:00 Potassium 4.1 mmol/L (3.5-5.1) 09/15/18 06:00 Chloride 102 mmol/L (98-107) 09/15/18 06:00 Carbon Dioxide 27 mmol/L (21-32) 09/15/18 06:00 Anion Gap 8 MMOL/L (8-16) 09/15/18 06:00 BUN 14 mg/dL (7-18) 09/15/18 06:00 Creatinine 0.8 mg/dL (0.55-1.3) 09/15/18 06:00 Creat Clearance w eGFR > 60 (>60) 09/15/18 06:00 Random Glucose 82 mg/dL (74-106) 09/15/18 06:00 Calcium 8.6 mg/dL (8.5-10.1) 09/15/18 06:00 Total Bilirubin 0.3 mg/dL (0.2-1) 09/15/18 06:00 AST 18 U/L (15-37) 09/15/18 06:00 ALT 28 U/L (13-61) 09/15/18 06:00 Alkaline Phosphatase 93 U/L (45-117) 09/15/18 06:00 Total Protein 7.0 g/dl (6.4-8.2) 09/15/18 06:00 Albumin 3.9 g/dl (3.4-5.0) 09/15/18 06:00 RPR Titer Nonreactive (NONREACTIVE) 09/15/18 06:00 lab noted Assessment: 09/16/18 11:59 withdrawal sx Plan: continue detox
[2018-09-16] MEDS: NICOTINE POLACRILEX 4 MG GUM BUC PRN ×3 (12:47→22:16)
[2018-09-16] MEDS: diazePAM 5 MG TABLET PO PRN ×2 (15:21→22:16)
[2018-09-16] MEDS: THIAMINE HCL 100 MG TABLET (FP) PO SCH (22:16)
[2018-09-16] MEDS: MELATONIN 5 MG TABLETS PO PRN (22:16)
[2018-09-17] MEDS: guaiFENesin/D-METHORPHAN HB 10 ML UNIT-DOSE CUPS PO PRN (01:55)
[2018-09-17] MEDS: MENTHOL/PHENOL 1 EACH UD MM PRN (01:56)
[2018-09-17] MEDS ORDERED: METHADONE HCL 5 MG TABLET (FOR DETOX USE ONLY) PO ONE (10:00)
[2018-09-17] MEDS: PRENATAL VITAMINS W/ FOLIC ACID TABLET (FP) PO SCH (10:19)
[2018-09-17] MEDS: NICOTINE POLACRILEX 4 MG GUM BUC PRN ×3 (10:21→21:08)
--- NOTE | 2018-09-17 13:50 | PN ---
[facility] Progress Note (SOAP) Subjective: body aches muscle cramping tremor sweat Objective: 09/17/18 13:49 Vital Signs Temperature 96.6 F L 09/17/18 09:09 Pulse Rate 68 09/17/18 09:09 Respiratory Rate 18 09/17/18 09:09 Blood Pressure 140/87 09/17/18 09:09 O2 Sat by Pulse Oximetry (%) Laboratory Last Values WBC 6.4 K/mm3 (4.0-10.0) 09/16/18 07:00 RBC 4.21 M/mm3 (4.00-5.60) 09/16/18 07:00 Hgb 13.6 GM/dL (11.7-16.9) 09/16/18 07:00 Hct 38.4 % (35.4-49) 09/16/18 07:00 MCV 91.1 fl (80-96) 09/16/18 07:00 MCH 32.3 pg (25.7-33.7) 09/16/18 07:00 MCHC 35.5 g/dl (32.0-35.9) 09/16/18 07:00 RDW 13.0 % (11.9-15.9) 09/16/18 07:00 Plt Count 259 K/MM3 (134-434) 09/16/18 07:00 MPV 9.0 fl (7.5-11.1) 09/16/18 07:00 Absolute Neuts (auto) 3.9 K/mm3 (1.5-8.0) 09/16/18 07:00 Neutrophils % 60.9 % (42.8-82.8) 09/16/18 07:00 Lymphocytes % 23.3 % (8-40) 09/16/18 07:00 Monocytes % 9.6 % (3.8-10.2) 09/16/18 07:00 Eosinophils % 5.8 % (0-4.5) H 09/16/18 07:00 Basophils % 0.4 % (0-2.0) 09/16/18 07:00 Nucleated RBC % 0 % (0-0) 09/16/18 07:00 Sodium 136 mmol/L (136-145) 09/15/18 06:00 Potassium 4.1 mmol/L (3.5-5.1) 09/15/18 06:00 Chloride 102 mmol/L (98-107) 09/15/18 06:00 Carbon Dioxide 27 mmol/L (21-32) 09/15/18 06:00 Anion Gap 8 MMOL/L (8-16) 09/15/18 06:00 BUN 14 mg/dL (7-18) 09/15/18 06:00 Creatinine 0.8 mg/dL (0.55-1.3) 09/15/18 06:00 Creat Clearance w eGFR > 60 (>60) 09/15/18 06:00 Random Glucose 82 mg/dL (74-106) 09/15/18 06:00 Calcium 8.6 mg/dL (8.5-10.1) 09/15/18 06:00 Total Bilirubin 0.3 mg/dL (0.2-1) 09/15/18 06:00 AST 18 U/L (15-37) 09/15/18 06:00 ALT 28 U/L (13-61) 09/15/18 06:00 Alkaline Phosphatase 93 U/L (45-117) 09/15/18 06:00 Total Protein 7.0 g/dl (6.4-8.2) 09/15/18 06:00 Albumin 3.9 g/dl (3.4-5.0) 09/15/18 06:00 RPR Titer Nonreactive (NONREACTIVE) 09/15/18 06:00 lab noted Assessment: 09/17/18 13:49 withdrawal sx Plan: continue detox
[2018-09-17] MEDS: MELATONIN 5 MG TABLETS PO PRN (21:07)
[2018-09-17] MEDS: hydrOXYzine HCL 25 MG TABLET (FP) PO PRN (21:07)
[2018-09-17] MEDS: THIAMINE HCL 100 MG TABLET (FP) PO SCH (21:07)
[2018-09-18] MEDS: PRENATAL VITAMINS W/ FOLIC ACID TABLET (FP) PO SCH (09:21)
[2018-09-18] MEDS: NICOTINE POLACRILEX 4 MG GUM BUC PRN ×2 (09:23→19:28)
[2018-09-18] MEDS ORDERED: METHADONE HCL 10 MG TABLET (FOR DETOX USE ONLY) PO ONE (10:00)
--- NOTE | 2018-09-18 10:46 | PN ---
[facility] Progress Note Note: PATIENT CONTINUES WITH DETOX REGIMEN. PATIENT C/O SLEEP DISTURBANCE AND RESTLESSNESS. Vital Signs Temperature 96.7 F L 09/18/18 09:01 Pulse Rate 65 09/18/18 09:01 Respiratory Rate 18 09/18/18 09:01 Blood Pressure 101/67 09/18/18 09:01 O2 Sat by Pulse Oximetry (%) Laboratory Tests 09/15/18 09/15/18 09/15/18 06:00 06:00 06:00 WBC 11.8 H RBC 4.25 Hgb 12.9 Hct 39.4 MCV 92.7 MCH 30.3 MCHC 32.7 RDW 13.5 Plt Count 292 D MPV 9.2 Absolute Neuts (auto) Neutrophils % Lymphocytes % Monocytes % Eosinophils % Basophils % Nucleated RBC % Sodium 136 Potassium 4.1 Chloride 102 Carbon Dioxide 27 Anion Gap 8 BUN 14 Creatinine 0.8 Creat Clearance w eGFR > 60 Random Glucose 82 Calcium 8.6 Total Bilirubin 0.3 AST 18 ALT 28 Alkaline Phosphatase 93 Total Protein 7.0 Albumin 3.9 RPR Titer Nonreactive 09/16/18 07:00 WBC 6.4 RBC 4.21 Hgb 13.6 Hct 38.4 MCV 91.1 MCH 32.3 MCHC 35.5 RDW 13.0 Plt Count 259 MPV 9.0 Absolute Neuts (auto) 3.9 Neutrophils % 60.9 Lymphocytes % 23.3 Monocytes % 9.6 Eosinophils % 5.8 H Basophils % 0.4 Nucleated RBC % 0 Sodium Potassium Chloride Carbon Dioxide Anion Gap BUN Creatinine Creat Clearance w eGFR Random Glucose Calcium Total Bilirubin AST ALT Alkaline Phosphatase Total Protein Albumin RPR Titer PE: SKIN WARM AND DRY ALERT AND ORIENTED X 3 AMB AD WILLIAM ANXIOUS/IRRITABLE. A/P: WITHDRAWAL SX CONTINUE DETOX FOR D/C IN AM CONTINUE TO MONITOR CLINICALLY
[2018-09-18] MEDS: MELATONIN 5 MG TABLETS PO PRN (22:12)
[2018-09-18] MEDS: hydrOXYzine HCL 25 MG TABLET (FP) PO PRN (22:12)
[2018-09-18] MEDS: THIAMINE HCL 100 MG TABLET (FP) PO SCH (22:12)
[2018-09-19] MEDS ORDERED: METHADONE HCL 5 MG TABLET (FOR DETOX USE ONLY) PO ONE (06:00)
[2018-09-19] MEDS: NICOTINE POLACRILEX 4 MG GUM BUC PRN ×2 (09:36→21:51)
[2018-09-19] MEDS: PRENATAL VITAMINS W/ FOLIC ACID TABLET (FP) PO SCH (10:07)
--- NOTE | 2018-09-19 13:01 | DS ---
[facility] Detox Discharge Summary Admission Date: 09/14/18 Discharge Date: 09/19/18 - History Present History: Opioid Dependence - Physical Exam Results Vital Signs: Vital Signs Temperature 97.7 F 09/19/18 09:01 Pulse Rate 57 L 09/19/18 09:01 Respiratory Rate 18 09/19/18 09:01 Blood Pressure 101/59 L 09/19/18 09:01 O2 Sat by Pulse Oximetry (%) Pertinent Admission Physical Exam Findings: PATIENT COMPLETED DETOX WITHOUT ADVERSE EVENT. PATIENT IS ALERT AND ORIENTED X 3 , CLINICALLY STABLE AND DENIES SI/HI. PATIENT ENCOURAGED TO ATTEND GROUP MEETINGS TO PREVENT RELAPSE. ALSO ATTEMPTED TO DISCUSS NARCAN KIT WITH PATIENT BUT HE WALKED AWAY. PATIENT ADVISED TO SEEK MEDICAL ATTENTION IF WITHDRAWAL SX OCCUR AND GIVEN D/C INSTRUCTIONS BY STAFF. - Treatment Hospital Course: Detox Protocol Followed, Detoxed Safely, Responded well, Discharged Condition Good - Medication Discharge Medications: Ambulatory Orders Quetiapine Fumarate [Seroquel -] 200 mg PO HS 03/19/13 - Diagnosis (1) Opioid dependence with withdrawal Current Visit: Yes Status: Resolved - AMA Did Patient Leave Against Medical Advice: No
[2018-09-19] MEDS: THIAMINE HCL 100 MG TABLET (FP) PO SCH (21:51)
[2018-09-20] MEDS: PRENATAL VITAMINS W/ FOLIC ACID TABLET (FP) PO SCH (10:35)
[2018-09-20] MEDS: NICOTINE POLACRILEX 4 MG GUM BUC PRN ×2 (10:36→21:47)
--- NOTE | 2018-09-20 11:30 | HP ---
Psychiatrist Admission - Data Date of interview: 09/20/18 Admission source: [address] [place] [address] detox Identifying data: This is the first admission to [address] [place] [address] rehabilitation for this 48 years old single father of 14 yo daughter,undomiciled ,supported by [facility]. Medical History: H/O L hip replacement,H/o HTN. Psychiatric History: He was under care of private psychiatrist in [facility].Patient stopped taking his psychotropics about 2 years ago under his psychiatrist agreement. Physical/Sexual Abuse/Trauma History: patient denies. Vital Signs: Vital Signs - 24 hr 09/20/18 09/20/18 03:30 07:08 Temperature 97.7 F Pulse Rate 64 Respiratory 16 18 Rate Blood Pressure 139/83 Allergies/Adverse Reactions: Allergies Allergy/AdvReac Type Severity Reaction Status Date / Time No Known Allergies Allergy Verified 09/14/18 10:46 Concur with the findings of this exam: Yes - Substance Abuse/Tx History Hx Alcohol Use: Yes Hx Substance Use: Yes Substance Use Type: Alcohol, Heroin Hx Substance Use Treatment: Yes (longest abstinence reported 5 monhts only) Mental Status Exam - Mental Status Exam Alert and Oriented to: Time, Place, Person Cognitive Function: Grossly Intact Patient Appearance: Unkempt Mood: Anxious Affect: Labile Patient Behavior: Cooperative Speech Pattern: Clear Voice Loudness: Normal Thought Process: Goal Oriented Thought Disorder: Not Present Hallucinations: Denies Suicidal Ideation: Denies Homicidal Ideation: Denies Insight/Judgement: Fair Sleep: Fair Appetite: Good Muscle strength/Tone: Normal Gait/Station: Normal Psychiatric Findings - Problem List ([place] 1, 2,3) (1) Opioid dependence Current Visit: Yes Status: Chronic (2) Bipolar disorder Current Visit: Yes Status: Chronic (3) Cocaine dependence Current Visit: Yes Status: Chronic Qualifiers: Substance use status: uncomplicated Qualified Code(s): F14.20 - Cocaine dependence, uncomplicated (4) Nicotine dependence Current Visit: Yes Status: Chronic Qualifiers: Nicotine product type: cigarettes Substance use status: uncomplicated Qualified Code(s): F17.210 - Nicotine dependence, cigarettes, uncomplicated
[2018-09-20] MEDS: MELATONIN 5 MG TABLETS PO PRN (21:47)
[2018-09-20] MEDS: THIAMINE HCL 100 MG TABLET (FP) PO SCH (21:47)
[2018-09-21] MEDS: PRENATAL VITAMINS W/ FOLIC ACID TABLET (FP) PO SCH (10:12)
[2018-09-21] MEDS: NICOTINE POLACRILEX 4 MG GUM BUC PRN ×3 (10:12→21:36)
[2018-09-21] MEDS: MELATONIN 5 MG TABLETS PO PRN (21:36)
[2018-09-21] MEDS: THIAMINE HCL 100 MG TABLET (FP) PO SCH (21:36)
[2018-09-22] MEDS: NICOTINE POLACRILEX 4 MG GUM BUC PRN ×3 (10:20→20:20)
[2018-09-22] MEDS: PRENATAL VITAMINS W/ FOLIC ACID TABLET (FP) PO SCH (10:20)
[2018-09-22] MEDS: THIAMINE HCL 100 MG TABLET (FP) PO SCH (21:25)
[2018-09-22] MEDS: MELATONIN 5 MG TABLETS PO PRN (21:25)
[2018-09-23] MEDS: NICOTINE POLACRILEX 4 MG GUM BUC PRN ×4 (07:34→21:40)
[2018-09-23] MEDS: PRENATAL VITAMINS W/ FOLIC ACID TABLET (FP) PO SCH (10:37)
[2018-09-23] MEDS: THIAMINE HCL 100 MG TABLET (FP) PO SCH (21:39)
[2018-09-24] MEDS: NICOTINE POLACRILEX 4 MG GUM BUC PRN ×4 (06:12→20:41)
[2018-09-24] MEDS: PRENATAL VITAMINS W/ FOLIC ACID TABLET (FP) PO SCH (10:24)
[2018-09-24] MEDS: THIAMINE HCL 100 MG TABLET (FP) PO SCH (21:39)
[2018-09-25] MEDS: NICOTINE POLACRILEX 4 MG GUM BUC PRN ×4 (08:18→20:21)
[2018-09-25] MEDS: PRENATAL VITAMINS W/ FOLIC ACID TABLET (FP) PO SCH (10:53)
[2018-09-25] MEDS: THIAMINE HCL 100 MG TABLET (FP) PO SCH (21:34)
[2018-09-26] MEDS: NICOTINE POLACRILEX 4 MG GUM BUC PRN ×4 (06:15→19:01)
[2018-09-26] MEDS: PRENATAL VITAMINS W/ FOLIC ACID TABLET (FP) PO SCH (10:34)
[2018-09-26] MEDS: THIAMINE HCL 100 MG TABLET (FP) PO SCH (21:31)
[2018-09-27] MEDS: MELATONIN 5 MG TABLETS PO PRN (00:58)
[2018-09-27] MEDS: IBUPROFEN 400 MG TABLET (FP) PO PRN (00:59)
[2018-09-27] MEDS: NICOTINE POLACRILEX 4 MG GUM BUC PRN ×2 (06:06→20:54)
[2018-09-27] MEDS: PRENATAL VITAMINS W/ FOLIC ACID TABLET (FP) PO SCH (10:11)
[2018-09-27] MEDS: NICOTINE 14 MG/24 HOURS TOPICAL PATCH TD SCH (10:11)
[2018-09-27] MEDS: hydrOXYzine HCL 25 MG TABLET (FP) PO PRN (21:35)
[2018-09-27] MEDS: THIAMINE HCL 100 MG TABLET (FP) PO SCH (21:35)
[2018-09-28] MEDS: NICOTINE 14 MG/24 HOURS TOPICAL PATCH TD SCH (09:57)
[2018-09-28] MEDS: PRENATAL VITAMINS W/ FOLIC ACID TABLET (FP) PO SCH (09:57)
[2018-09-28] MEDS: NICOTINE POLACRILEX 4 MG GUM BUC PRN ×2 (17:48→21:38)
[2018-09-28] MEDS: MELATONIN 5 MG TABLETS PO PRN (21:38)
[2018-09-28] MEDS: THIAMINE HCL 100 MG TABLET (FP) PO SCH (21:38)
[2018-09-29] MEDS: PRENATAL VITAMINS W/ FOLIC ACID TABLET (FP) PO SCH (10:03)
[2018-09-29] MEDS: NICOTINE 14 MG/24 HOURS TOPICAL PATCH TD SCH (10:04)
[2018-09-29] MEDS: NICOTINE POLACRILEX 4 MG GUM BUC PRN ×2 (10:05→21:34)
[2018-09-29] MEDS: MELATONIN 5 MG TABLETS PO PRN (21:33)
[2018-09-29] MEDS: THIAMINE HCL 100 MG TABLET (FP) PO SCH (21:33)
[2018-09-30] MEDS: hydrOXYzine HCL 25 MG TABLET (FP) PO PRN (01:40)
[2018-09-30] MEDS: NICOTINE POLACRILEX 4 MG GUM BUC PRN ×4 (01:40→21:38)
[2018-09-30] MEDS: PRENATAL VITAMINS W/ FOLIC ACID TABLET (FP) PO SCH (10:11)
[2018-09-30] MEDS: NICOTINE 14 MG/24 HOURS TOPICAL PATCH TD SCH (10:11)
[2018-09-30] MEDS: MELATONIN 5 MG TABLETS PO PRN (21:38)
[2018-09-30] MEDS: THIAMINE HCL 100 MG TABLET (FP) PO SCH (21:38)
[2018-10-01] MEDS: NICOTINE POLACRILEX 4 MG GUM BUC PRN ×3 (07:32→21:33)
[2018-10-01] MEDS: PRENATAL VITAMINS W/ FOLIC ACID TABLET (FP) PO SCH (10:01)
[2018-10-01] MEDS: NICOTINE 14 MG/24 HOURS TOPICAL PATCH TD SCH (10:01)
[2018-10-01] MEDS: THIAMINE HCL 100 MG TABLET (FP) PO SCH (21:33)
[2018-10-02] MEDS: NICOTINE POLACRILEX 4 MG GUM BUC PRN ×4 (06:32→21:35)
[2018-10-02 07:06] VITALS: BP 129/74; PULSE 71; TEMP 97.4
[2018-10-02] MEDS: NICOTINE 14 MG/24 HOURS TOPICAL PATCH TD SCH (10:04)
[2018-10-02] MEDS: PRENATAL VITAMINS W/ FOLIC ACID TABLET (FP) PO SCH (10:04)
[2018-10-02] MEDS: THIAMINE HCL 100 MG TABLET (FP) PO SCH (21:34)
[2018-10-02] MEDS: MELATONIN 5 MG TABLETS PO PRN (21:35)
[2018-10-02] MEDS: IBUPROFEN 400 MG TABLET (FP) PO PRN (23:32)
[2018-10-03] MEDS: hydrOXYzine HCL 25 MG TABLET (FP) PO PRN (00:32)
[2018-10-03] MEDS: NICOTINE POLACRILEX 4 MG GUM BUC PRN ×2 (00:32→09:23)
[2018-10-03] MEDS: NICOTINE 14 MG/24 HOURS TOPICAL PATCH TD SCH (09:21)
[2018-10-03] MEDS: PRENATAL VITAMINS W/ FOLIC ACID TABLET (FP) PO SCH (09:21)
--- NOTE | 2018-10-03 09:31 | PN ---
Psychiatric Progress Note Vital Signs: Vital Signs Period Temp Pulse Resp BP Sys/Kang Pulse Ox Last 24 Hr - Date of Session: 10/03/18 Chief Complaint:: Discharge Note HPI: Patient addressing Opioid and Cocaine Dependence comorbid with Nicotine Dependence ROS: HTN was medically managed Current Medications: Active Medications Generic Name Dose Route Start Last Admin Trade Name Freq PRN Reason Stop Dose Admin Acetaminophen 650 mg 09/14/18 10:37 Tylenol - PO Q4H PRN FEVER Al Hydroxide/Mg Hydroxide 30 ml 09/14/18 10:37 Mylanta Oral Suspension - PO Q6H PRN DYSPEPSIA Eucalyptus/Menthol/Phenol/Sorbitol 1 each 09/14/18 10:37 09/17/18 01:56 Cepastat Lozenge - MM 1 each Q4H PRN Administration SORE THROAT Guaifenesin 10 ml 09/14/18 10:37 09/17/18 01:55 Robitussin Dm - PO 10 ml Q6H PRN Administration COUGH Hydroxyzine HCl 25 mg 09/17/18 17:11 10/03/18 00:32 Atarax - PO 25 mg Q6H PRN Administration FOR ITCHING Ibuprofen 400 mg 09/14/18 10:37 10/02/18 23:32 Motrin - PO 400 mg Q6H PRN Administration PAIN LEVEL 4-6 Loperamide HCl 4 mg 09/14/18 10:37 Imodium - PO Q6H PRN DIARRHEA Magnesium Citrate 300 ml 09/14/18 10:37 Citroma - PO Q48H PRN CONSTIPATION Magnesium Hydroxide 30 ml 09/14/18 10:37 Milk Of Magnesia - PO DAILY PRN CONSTIPATION Melatonin 5 mg 09/14/18 22:00 10/02/18 21:35 Melatonin PO 5 mg HS PRN Administration INSOMNIA Nicotine 14 mg 09/27/18 10:00 10/03/18 09:21 Nicoderm Patch - TD 14 mg DAILY NADIA Administration Nicotine Polacrilex 4 mg 09/14/18 10:37 10/03/18 09:23 Nicorette Gum - BUC 4 mg Q2H PRN Administration NICOTINE REPLACEMENT RX Multivit/Folic Acid/Iron 1 tab 09/15/18 10:00 10/03/18 09:21 Vitamins (Sjr) - PO 1 tab DAILY NADIA Administration Pseudoephedrine/Triprolidine 1 combo 09/14/18 10:37 Actifed - PO TID PRN NASAL CONGESTION Thiamine HCl 100 mg 09/14/18 22:00 10/02/18 21:34 Vitamin B1 - PO 100 mg HS NADIA Administration Current Side Effect: No Lab tests ordered: Yes Lab tests reviewed: Yes Provider note:: Patient has completed this program today. He has met his treatment goals and will continue to address his issues in [facility] residential treatment at [facility] in [place], [place]. Told health technical writer that from his participation in this program, he has learned the importance of going to AA/NA and get a sponsor. He is stable for discharge today Total face to face time:: 35 Mental Status Exam - Mental Status Exam Alert and Oriented to: Time, Place, Person Cognitive Function: Fair Patient Appearance: Well Groomed Mood: Hopeful, Euthymic Affect: Appropriate Patient Behavior: Cooperative Speech Pattern: Clear Voice Loudness: Normal Thought Process: Intact, Goal Oriented Thought Disorder: Not Present Hallucinations: Denies Suicidal Ideation: Denies Homicidal Ideation: Denies Insight/Judgement: Fair Sleep: Fair Appetite: Good Muscle strength/Tone: Normal Gait/Station: Normal Psychiatric Treatment Plan - Problem List (1) Bipolar disorder Current Visit: Yes (2) Substance induced mood disorder Current Visit: Yes (3) Opioid dependence Current Visit: Yes (4) Cocaine dependence Current Visit: Yes Qualifiers: Substance use status: uncomplicated Qualified Code(s): F14.20 - Cocaine dependence, uncomplicated (5) Nicotine dependence Current Visit: Yes Qualifiers: Nicotine product type: cigarettes Substance use status: uncomplicated Qualified Code(s): F17.210 - Nicotine dependence, cigarettes, uncomplicated (6) Hypertension Current Visit: No Initial treatment plan: Patient is discharged today and referred to [facility] in [place] for [facility] residential treatment
== END 2018-10-03 10:35 | disposition home or self-care (01) | DRG 895 ==
LOC: YASAS 09:21 → Y3N 11:18 → Y5N 09-19 15:26
PROVIDERS: ATTEND Psychiatry & Neurology Psychiatry
PROC: HZ2ZZZZ Detoxification Services for Substance Abuse Treatment (ICD-10-PCS; principal; 2018-09-14)
PROC: HZ42ZZZ Group Counseling for Substance Abuse Treatment, Cognitive-Behavioral (ICD-10-PCS; 2018-09-19)
DX: F11.23 Opioid dependence with withdrawal (principal); F14.20 Cocaine dependence, uncomplicated; F17.210 Nicotine dependence, cigarettes, uncomplicated; F19.24 Other psychoactive substance dependence with psychoactive substance-induced mood disorder; F31.9 Bipolar disorder, unspecified; I10 Essential (primary) hypertension; D72.829 Elevated white blood cell count, unspecified; Z96.642 Presence of left artificial hip joint
CPT/HCPCS: 36415; 80053; 85025; 85027; 86593; 87389

== ENCOUNTER 2020-03-31 11:26 | Inpatient (IN) | payer OTHER ==
--- NOTE | 2020-03-31 11:45 | BHS.RME ---
Substance Use & Tx History - Substance Use History Alcohol Substance amount: 1 pint vodka + beers Frequency of use: Daily Substance route: Oral Date of Last Use: 03/31/20 Ephedrine Frequency of use: Less than 3 times per week Substance route: Oral Date of Last Use: 03/30/20 Physical/Psych/Mental Status - Behavior General Behavior: Increased activity (restlessness, agitation) Eye Contact: Normal - Cooperativeness Cooperativeness: Cooperative - Thinking Thought Processes: Tight, Logical, Goal Directed - Physical Health Problems Is patient presently having any pain?: No Does patient presently have any injuries (include location): No Does patient currently have a fever: No Is patient : No CIWA Nausea/Vomitin-Mild Nausea/No Vomiting Muscle Tremors: 4-Moderate,w/Arms Extend Anxiety: 3 Agitation: 3 Paroxysmal Sweats: 1-Minimal Palms Moist Orientation: 0-Oriented Tacttile Disturbances: 0-None Auditory Disturbances: 0-None Visual Disturbances: 1-Very Mild Sensitivity Headache: 3-Moderate CIWA-Ar Total Score: 16
--- NOTE | 2020-03-31 13:56 | HP ---
CIWA Score Nausea/Vomitin-Mild Nausea/No Vomiting Muscle Tremors: 4-Moderate,w/Arms Extend Anxiety: 3 Agitation: 3 Paroxysmal Sweats: 1-Minimal Palms Moist Orientation: 0-Oriented Tacttile Disturbances: 0-None Auditory Disturbances: 0-None Visual Disturbances: 1-Very Mild Sensitivity Headache: 3-Moderate CIWA-Ar Total Score: 16 - Admission Criteria OASAS Guidelines: Admission for Medically Managed Detox: Requires at least one of the followin. CIWA greater than 12 2. Seizures within the past 24 hours 3. Delirium tremens within the past 24 hours 4. Hallucinations within the past 24 hours 5. Acute intervention needed for co occurring medical disorder 6. Acute intervention needed for co occurring psychiatric disorder 7. Severe withdrawal that cannot be handled at a lower level of care (continued vomiting, continued diarrhea, abnormal vital signs) requiring intravenous medication and/or fluids 8. Admitting History and Physical - Admission Chief Complaint: " I want to stop drinking." History of Present Illness: 49 year old male with history of alcohol dependence with withdrawal. He was last here on 09/14-10/03/18 completed detox and rehab. he did attempt methadone, suboxone and vivitrol in the past with failure. Alcohol: 1 pint vodka and beers daily, started at age 16 and last used 03/31/20. He has had multiple blackouts, last one yesterday. 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 Decongestant: 3x/wk drinks it started at age 44 and last used 03/30/20 PMH: HTN Psurg: Left Hip replacement Psych: Bipolar on Seroquel. Patient is homeless in custodial in [facility]. He has no legal issues pending. CIWA= 16 Breathylyzer 0.000 He states he took illicitly a xanax pill on streets. Urine Tox: [facility] History Source: Patient Limitations to Obtaining History: No Limitations - Smoking History Smoking history: Current every day smoker Have you smoked in the past 12 months: Yes Aproximately how many cigarettes per day: 10 - Alcohol/Substance Use Hx Alcohol Use: No (socially) Admission ROS [facility] Allergies/Adverse Reactions: Allergies Allergy/AdvReac Type Severity Reaction Status Date / Time No Known Allergies Allergy Verified 09/14/18 10:46 Exam Limitations: No Limitations - Ebola screening Have you traveled outside of the country in the last 21 days: No Have you had contact with anyone from an Ebola affected area: No Have you been sick,other than usual withdrawal symptoms: No Do you have a fever: No - Review of Systems Constitutional: No Symptoms Reported EENT: reports: No Symptoms Reported Respiratory: reports: No Symptoms reported Cardiac: reports: No Symptoms Reported GI: reports: No Symptoms Reported : reports: No Symptoms Reported Musculoskeletal: reports: No Symptoms Reported Integumentary: reports: No Symptoms Reported Neuro: reports: No Symptoms reported Endocrine: reports: No Symptoms Reported Hematology: reports: No Symptoms Reported Psychiatric: reports: Judgement Intact, Mood/Affect Appropiate, Orientated x3, Agitated, Anxious Other Systems: Reviewed and Negative Patient History - Patient Medical History Hx Anemia: No Hx Asthma: No Hx Chronic Obstructive Pulmonary Disease (COPD): No Hx Cancer: No Hx Cardiac Disorders: Yes Hx Congestive Heart Failure: No Hx Hypertension: Yes Hx Hypercholesterolemia: No Hx Pacemaker: No HX Cerebrovascular Accident: No Hx Seizures: No Hx Dementia: No Hx Diabetes: No Hx Gastrointestinal Disorders: No Hx Liver Disease: No Hx Genitourinary Disorders: No Hx Sexually Transmitted Disorders: No Hx Renal Disease (ESRD): No Hx Thyroid Disease: No Hx Human Immunodeficiency Virus (HIV): No Hx Hepatitis C: No Hx Depression: Yes Hx Suicide Attempt: No Hx Bipolar Disorder: Yes (ON SEROQUEL but none x 6months; hospitalized 2016) Hx Schizophrenia: No - Patient Surgical History Past Surgical History: Yes Hx Neurologic Surgery: No Hx Cataract Extraction: No Hx Cardiac Surgery: No Hx Lung Surgery: No Hx Breast Surgery: No Hx Breast Biopsy: No Hx Abdominal Surgery: No Hx Appendectomy: No Hx Cholecystectomy: No Hx Genitourinary Surgery: No Hx Orthopedic Surgery: Yes (rt. shoulder arthroscopy; left hip replacement 2012) Anesthesia Reaction: No - PPD History Previous Implant?: Yes Documented Results: Negative w/o proof Implanted On Prior [facility] Admission?: Yes Date: 02/09/18 PPD to be Administered?: Yes - Smoking Cessation Smoking history: Current every day smoker Have you smoked in the past 12 months: Yes Aproximately how many cigarettes per day: 10 Hx Chewing Tobacco Use: No Initiated information on smoking cessation: Yes 'Breaking Loose' booklet given: 03/31/20 - Substances abused Alprazolam (Xanax) Substance route: Oral Frequency: Daily Amount used: 1 pint vodka and beers Age of first use: 16 Date of last use: 03/31/20 Ephedrine Substance route: Oral Frequency: 3-6 times per week Amount used: 1 bottle Age of first use: 44 Date of last use: 03/30/20 Admission Physical Exam S - Physical General Appearance: Yes: Moderate Distress, Tremorous, Irritable, Sweating, Anxious HEENTM: Yes: EOMI, Hearing grossly Normal, Normal ENT Inspection, Normocephalic, Normal Voice, BRIAN, Pharynx Normal, Tm's normal Respiratory: Yes: Chest Non-Tender, Lungs Clear, Normal Breath Sounds, No Respiratory Distress, No Accessory Muscle Use Neck: Yes: No masses,lesions,Nodules, Supple, Trachea in good position Breast: Yes: Within Normal Limits Cardiology: Yes: Regular Rhythm, Regular Rate, S1, S2 Abdominal: Yes: Normal Bowel Sounds, Non Tender, Flat, Soft Genitourinary: Yes: Within Normal Limits Back: Yes: Normal Inspection Musculoskeletal: Yes: full range of Motion, Gait Steady, Pelvis Stable Extremities: Yes: Normal Capillary Refill, Normal Inspection, Normal Range of Motion, Non-Tender Neurological: Yes: health and wellness coordinator II-XII NML intact, Fully Oriented, Alert, Motor Strength 5/5, Normal Mood/Affect Integumentary: Yes: Normal Color, Dry, Warm Lymphatic: Yes: Within Normal Limits - Diagnostic (1) Alcohol dependence with uncomplicated withdrawal Current Visit: Yes Status: Acute (2) Bipolar disorder Current Visit: Yes Status: Chronic (3) Hypertension Current Visit: Yes Status: Chronic (4) Nicotine dependence Current Visit: Yes Status: Chronic Qualifiers: Nicotine product type: cigarettes Substance use status: uncomplicated Qualified Code(s): F17.210 - Nicotine dependence, cigarettes, uncomplicated Inpatient Rehab Admission - Rehab Decision to Admit Inpatient rehab admission?: No
[2020-03-31 14:27] VITALS: BMI 23.2
[2020-03-31] MEDS ORDERED: IBUPROFEN 400 MG TABLET (FP) PO PRN (15:10)
[2020-03-31] MEDS ORDERED: MAGNESIUM CITRATE 300 ML BOTTLE PO PRN (15:10)
[2020-03-31] MEDS ORDERED: ACETAMINOPHEN 325 MG TABLET (FP) PO PRN ×2 (15:10)
[2020-03-31] MEDS ORDERED: METHOCARBAMOL 500 MG TABLET PO PRN (15:10)
[2020-03-31] MEDS ORDERED: MAG HYDROX/AL HYDROX/SIMETH 30 ML UNIT-DOSE CUP PO PRN (15:10)
[2020-03-31] MEDS ORDERED: BISMUTH SUBSALICYLATE 524 MG/30 ML UD PO PRN (15:10)
[2020-03-31] MEDS ORDERED: MAGNESIUM HYDROX 2400MG/30ML ORAL SUSPENSION 30 ML CUP PO PRN (15:10)
[2020-03-31] MEDS ORDERED: MENTHOL/PHENOL 1 EACH UD MM PRN (15:10)
[2020-03-31] MEDS ORDERED: NICOTINE POLACRILEX 4 MG GUM BUC PRN (15:10)
[2020-03-31] MEDS ORDERED: ONDANSETRON *ODT* 4 MG TABLET SL PRN (15:10)
[2020-03-31] MEDS ORDERED: PRENATAL VITAMINS W/ FOLIC ACID TABLET (FP) PO SCH (15:15)
--- NOTE | 2020-03-31 15:32 | PN ---
S Progress Note Note: repeat BP at 3:30 pm 147/105 Will order amlodipine 5 mg x 1
[2020-03-31] MEDS ORDERED: amLODIPine BESYLATE 5 MG TABLET (FP) PO ONE (15:46)
[2020-03-31] MEDS: LORazepam 1 MG TABLET PO PRN (15:58)
[2020-03-31 17:12] LABS: HEMATOCRIT 47.9 % (35.4-49); HEMOGLOBIN 16.3 GM/dL (11.7-16.9); MCH 31.7 pg (25.7-33.7); MEAN CELL VOLUME 93.3 fl (80-96); MEAN PLT VOLUME 9.3 fl (7.5-11.1); PLATELET COUNT 254 K/MM3 (134-434); RBC 5.13 M/mm3 (4.00-5.60); RDW 13.1 % (11.9-15.9); WHITE BLOOD COUNT 10.4 K/mm3 (4.0-10.0)
[2020-03-31 17:24] LABS: ALBUMIN 4.8 g/dl (3.4-5.0); BILIRUBIN,TOTAL 0.9 mg/dL (0.2-1); BLOOD UREA NITROGEN 8.7 mg/dL (7-18); CALCIUM 9.8 mg/dL (8.5-10.1); CREATININE 1.1 mg/dL (0.55-1.3); POTASSIUM 3.9 mmol/L (3.5-5.1); TOT PROT 8.3 g/dl (6.4-8.2)
[2020-03-31] MEDS: hydrOXYzine PAMOATE 25 MG CAPSULE (FP) PO SCH ×2 (17:51→21:59)
[2020-03-31] MEDS: LORazepam 2 MG TABLET PO SCH ×2 (17:51→22:00)
--- NOTE | 2020-03-31 18:28 | CONSULT ---
[facility] Psychiatric Consult - Data Date of interview: 03/31/20 Admission source: [facility] Identifying data: Revisit to [facility] and admission to [address] [place] [id number] for this 49 y/o male self-referred for detoxification treatment. MAGDIEL issues : alcohol, nicotine, amphetamine. Patient is single, father of one (16 y/o daughter), homeless (custodial resident), unemployed and supported on SSD benefits. Substance Abuse History: Discussed with the patient. MAGDIEL profile as follows : Smoking history: Current every day smoker. Have you smoked in the past 12 months: Yes. Aproximately how many cigarettes per day: 10. Hx Chewing Tobacco Use: No. Initiated information on smoking cessation: Yes. 'Breaking Loose' booklet given: 03/31/20. - Substances abused. Alprazolam (Xanax). Substance route: Oral. Frequency: Daily. Amount used: 1 pint vodka and beers. Age of first use: 16. Date of last use: 03/31/20. Ephedrine. Substance route: Oral. Frequency: 3-6 times per week. Amount used: 1 bottle. Age of first use: 44. Date of last use: 03/30/20. he did attempt methadone, suboxone and vivitrol in the past with failure. Medical History: Medical history is remarkable for hypertension + antecedent of orthosurgeries (right shoulder arthroscopy and left hip replacement in 2012). Psychiatric History: Patient endorses history of multiple psychiatric hospitalizations ([facility], [facility] and other unnamed institutions located in the [place] area). 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 Diagnosed was revised later for bipolar disorder. Mr Valencia has been tried on various psychotropic medications that include latuda, seroquel, wellbutrin, gabapentin and others (not recalled by patient). He admits to chronic non- adherence to OPD care. Sees, sporadically, a psychiatrist at the [facility]. Was recently prescribed a combination of seroquel + bupropion. Denies history of suicide attempts. Physical/Sexual Abuse/Trauma History: Patient denies. Additional Comment: No toxicaology available for review. Mental Status Exam - Mental Status Exam Alert and Oriented to: Time, Place, Person Cognitive Function: Good Patient Appearance: Well Groomed Mood: Nervous, Withdrawn, Anxious Affect: Mood Congruent, Constricted Patient Behavior: Fatigued, Appropriate, Cooperative Speech Pattern: Clear, Appropriate Voice Loudness: Normal Thought Process: Intact, Goal Oriented Thought Disorder: Not Present Hallucinations: Denies Suicidal Ideation: Denies Homicidal Ideation: Denies Insight/Judgement: Poor Sleep: Poorly, Difficulty falling asleep Appetite: Good Gait/Station: Other (not observed; in bed for entire interview) Psychiatric Findings - Problem List ([place] 1, 2,3) (1) Alcohol dependence with uncomplicated withdrawal Status: Acute (2) Nicotine dependence Status: Chronic Qualifiers: Nicotine product type: cigarettes Substance use status: uncomplicated Qualified Code(s): F17.210 - Nicotine dependence, cigarettes, uncomplicated (3) Substance induced mood disorder Status: Chronic (4) Amphetamine abuse Status: Chronic (5) History of schizoaffective disorder Status: Chronic (6) Insomnia Status: Chronic (7) Non-compliance Status: Acute - Initial Treatment Plan Initial Treatment Plan: Psychoeducation. Support. Sleep hygiene. Motivational counseling. Resumed, at patient's request : seroquel 50 mg po hs + wellbutrin XL 150 mg po daily. Side effects/benefits of both drugs are discussed with the patient. Mr Valencia is in agreement with this plan of care. Informed consent (verbal) granted to MD. Dong.
[2020-03-31] MEDS ORDERED: cloNIDine HCL 0.1 MG TABLET PO ONE (19:11)
--- NOTE | 2020-03-31 19:21 | PN ---
BHS Progress Note Note: Ptient's blood pressure is B/P 150/101 and B/P 149/99 respectively. Patient is asymptomatic Vital Signs 03/31/20 03/31/20 03/31/20 14:21 15:54 17:00 Temperature 97.3 F L 97.1 F L 97.3 F L Pulse Rate 92 H 111 H 107 H Respiratory 17 18 18 Rate Blood Pressure 191/114 H 146/100 150/101 H O2 Sat by Pulse 99 Oximetry (%) 03/31/20 19:08 Temperature Pulse Rate 130 H Respiratory Rate Blood Pressure 149/99 O2 Sat by Pulse Oximetry (%) Action: Clonidine HCL 0.1mg tablet oral ordered
[2020-03-31 21:31] VITALS: PULSE 125
[2020-03-31] MEDS ORDERED: MELATONIN 5 MG TABLETS PO SCH (22:00)
[2020-03-31] MEDS ORDERED: THIAMINE HCL 100 MG TABLET (FP) PO SCH (22:00)
[2020-03-31] MEDS ORDERED: QUEtiapine FUMARATE 50 MG TABLET PO SCH (22:00)
[2020-04-01] MEDS: LORazepam 1 MG TABLET PO PRN (01:43)
[2020-04-01 04:14] VITALS: BP 153/104; TEMP 97.5
--- NOTE | 2020-04-01 04:42 | PN ---
[facility] Progress Note Note: Vital Signs Temperature 97.5 F L 04/01/20 04:13 Pulse Rate 125 H 04/01/20 04:13 Respiratory Rate 18 04/01/20 04:13 Blood Pressure 153/104 H 04/01/20 04:13 O2 Sat by Pulse Oximetry (%) 99 04/01/20 04:14 ASKED TO SEE PATIENT FOR C/O AVH. CLIENT REPORTS HEARING KIDS ON THE THE AWNING MAKING NOISE. AFTER INVESTIGATING BY LOOKING OUT THE WINDOW HE SAW WHAT LOOKED LIKE A BOY AND A GIRL HAVING SEX. HE STATES LATER HE SAW THE SAME GIRL COME OUT OF HIS ROOM CLOSET. CLIENT REPORTS THE GIRL LOOKS LIKE A FEMALE EMPLOYEE FROM THE PREVIOUS SHIFT. HE FEELS UNSAFE BUT DENIES SI/HI. HE REPORTS THAT HE POSSIBLE COULD HAVE SEX WITH HER BUT IS TRYING HARD TO STAY IN A GOOD SPIRITUAL SPACE. CLIENT IS ASKING STAFF TO CONDUCT ROOM AND CLOSET SEARCH OF OTHER ROOMS IN SEARCH OF THE GIRL. CLIENT REPORTS INTERMITTENT AVH FOR THE PAST 3 DAYS ( OF DIFFERENT THOUGHTS) BUT NOW PROGRESSIVELY WORSE. REPORTS PREVIOUS HX WITH WITHDRAWAL. CLIENT IS A/O X3 , APPROACHABLE, BUT CONTINUES TO REPORT HEARING THE CHILDREN AND THEM POSSIBLY COMING THROUGH THE AIR CONDITIONER TO HURT HIM. REPORTS HX OF BIPOLAR, NON COMPLIANCE WITH MEDICAL/ MEDICATION MGMT. ELEVATED B/P (REPORTS ONLY WITH WITHDRAWALS) DENIES SOB, C.P. CLIENT IS NOTED ANXIOUS,PACING THE UNIT AT TIMES OPENING OTHER PATIENTS ROOMS IN SEARCH OF THE GIRL. BILLING MACHINE OPERATOR ATTEMPTED TO PROVIDE EMOTIONAL SUPPORT AND ENSURE THE CLIENT THAT HE IS SAFE . BILLING MACHINE OPERATOR NOTICE CLIENT BECOMING AGITATED HE DOESN'T FEEL WE BELIEVE HIM. "(YOU DONT BELIEVE ME)" D/W CLIENT WILL TRANSFER TO [facility] FOR FURTHER EVAL. CLIENT AGREES, STATING BECAUSE I REALLY AM TRYING HARD NOT TO HAVE SEX WITH HER. A- ETOH WITHDRAWAL, ?DT'S, AVH. P- TRANSFER TO [facility]
[2020-04-01] MEDS: hydrOXYzine PAMOATE 25 MG CAPSULE (FP) PO SCH (07:27)
[2020-04-01] MEDS: LORazepam 2 MG TABLET PO SCH (07:27)
[2020-04-02] MEDS ORDERED: LORazepam 1 MG TABLET PO SCH (05:00)
[2020-04-03] MEDS ORDERED: LORazepam 0.5 MG TABLET PO PRN
[2020-04-03] MEDS ORDERED: LORazepam 0.5 MG TABLET PO SCH (05:00)
[2020-04-04] MEDS ORDERED: LORazepam 0.5 MG TABLET PO ONE (05:00)
== END 2020-04-01 05:18 | DRG 897 ==
LOC: YASAS 11:26 → Y3N 15:02
PROVIDERS: ADMIT Allergy & Immunology; ATTEND Allergy & Immunology
PROC: HZ2ZZZZ Detoxification Services for Substance Abuse Treatment (ICD-10-PCS; principal; 2020-03-31)
DX: F10.230 Alcohol dependence with withdrawal, uncomplicated (principal); F13.20 Sedative, hypnotic or anxiolytic dependence, uncomplicated; F15.10 Other stimulant abuse, uncomplicated; F17.210 Nicotine dependence, cigarettes, uncomplicated; F19.24 Other psychoactive substance dependence with psychoactive substance-induced mood disorder; F31.9 Bipolar disorder, unspecified; F25.9 Schizoaffective disorder, unspecified; I10 Essential (primary) hypertension; G47.00 Insomnia, unspecified; Z96.642 Presence of left artificial hip joint; Z56.0 Unemployment, unspecified; Z59.0 Homelessness
CPT/HCPCS: 36415; 80053; 85027; 86780; J0735; U0003